=== PATIENT | female | born 2000 | race Two or more races ===

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

== ENCOUNTER 2018-11-17 11:59 | Emergency (ER) | payer OTHER ==
[2018-11-17 12:12] VITALS: BP 120/77
--- NOTE | 2018-11-17 12:37 | ED Physician Documentation ---
History of Present Illness - Stated complaint Stated Complaint: RT ANKLE BUG BITE - Chief complaint Chief Complaint: Wound - History obtained from History obtained from: Patient - History of Present Illness Timing: Yesterday - Additonal information Additional information: This is a 18-year-old woman who has a history of having pretty significant reaction to mosquito bites in the past and she got bit last evening around 9 PM on her left thigh and her right foot. The right ankle area continues to swell as very uncomfortable to stand or put weight down on her foot. She put witch nicolas and a bug cream on it but has not taken anything for the swelling or itching. It is locally itchy but she does not have any spreading rash, no shortness of breath, no fever. The thigh bite has already started to regress which makes her more concerned about the progression of this right foot swelling. 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 : None HEENT: None Psych: None Musculoskeletal: None Derm: Other - Past Surgical History Past Surgical History: No - Present Medications Home Medications: Ambulatory Orders Medication Instructions Recorded Confirmed Control Pill 05/02/16 - Allergies Allergies/Adverse Reactions: Allergies Allergy/AdvReac Type Severity Reaction Status Date / Time No Known Drug Allergies Allergy Verified 11/17/18 12:12 - Social History Does the pt smoke?: No Smoking Status: Never smoker Does the pt drink ETOH?: No Does the pt have substance abuse?: No - Immunizations Immunizations are current?: Yes PD ED PE NORMAL - Vitals Vital signs reviewed: Yes - General General: Alert and oriented X 3, No acute distress, Well developed/nourished - Cardiac Cardiac: RRR - Respiratory Respiratory: No respiratory distress - Derm Derm: Other (Small erythematous raised area to the left thigh that is less than a centimeter. Right lateral ankle anterior to the lateral malleolus is erythematous feels a little warm and edematous consistent with localized reaction. There is no red streaking up the leg.) Results - Vitals Vitals: Vital Signs - 24 hr 11/17/18 12:10 Temperature 36.3 C L Heart Rate 72 Respiratory 16 Rate Blood Pressure 120/77 O2 Saturation 100 Oxygen O2 Source Room air PD MEDICAL DECISION MAKING - ED course Complexity details: d/w patient, d/w family ED course: This swelling is consistent with a localized reaction. The patient is encouraged to take ibuprofen and Benadryl to help with swelling. She was offered a note for work today but she is declined that. Follow-up in 48 hours if there is spreading redness, she develops a fever or increasing pain. Keep Benadryl on hand in the future for future mosquito bites. Departure - Departure Disposition: 01 Home, Self Care Clinical Impression: Insect bite Qualifiers: Encounter type: initial encounter Site of insect bite: foot Laterality: right Qualified Code(s): S90.861A - Insect bite (nonvenomous), right foot, initial encounter; W57.XXXA - Bitten or stung by nonvenomous insect and other nonvenomous arthropods, initial encounter Condition: Good Instructions: ED Bite Mosquito Follow-Up: RYAN REYES MD [Primary Care Provider] - Comments: Take ibuprofen [id number] up to 3 to 4 tablets every 8 hours with food. Take Benadryl 1 to 2 tablets every 4-6 hours for itching and swelling. May ice the area and elevate it to help reduce the swelling. Follow-up if there is continued spreading redness, increasing pain or fever after 48 hours.
== END 2018-11-17 13:04 | disposition home or self-care (01) ==
LOC: ED 11:59
DX: S90.861A Insect bite (nonvenomous), right foot, initial encounter (principal); W57.XXXA Bitten or stung by nonvenomous insect and other nonvenomous arthropods, initial encounter
CPT/HCPCS: 99282

== ENCOUNTER 2019-04-20 12:57 | Emergency (ER) | payer OTHER ==
[2019-04-20 13:07] VITALS: BP 150/86
--- NOTE | 2019-04-20 13:57 | ED Physician Documentation ---
PD HPI FEMALE - Stated complaint Stated Complaint: FEMALE - Chief complaint Chief Complaint: General - History obtained from History obtained from: Patient - History of Present Illness Timing - onset: How many weeks ago (2) Timing - duration: Weeks (had unprotected intercourse 2 weeks ago without any discharge or dysuria since. 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 : None HEENT: None Psych: None Musculoskeletal: None Derm: Other - Past Surgical History Past Surgical History: No - Present Medications Home Medications: Ambulatory Orders Medication Instructions Recorded Confirmed Control Pill 05/02/16 - Allergies Allergies/Adverse Reactions: Allergies Allergy/AdvReac Type Severity Reaction Status Date / Time No Known Drug Allergies Allergy Verified 04/20/19 13:03 - Social History Does the pt smoke?: No Smoking Status: Never smoker Does the pt drink ETOH?: No Does the pt have substance abuse?: No - Immunizations Immunizations are current?: Yes PD ED PE NORMAL - Vitals Vital signs reviewed: Yes - General General: Alert and oriented X 3, No acute distress, Well developed/nourished - Neck Neck: Supple, no meningeal sign, No adenopathy - Abdomen Abdomen: Soft, Non tender - Female Female : Deferred - Back Back: No CVA TTP - Derm Derm: Normal color, Warm and dry - Neuro Neuro: Alert and oriented X 3, No motor deficit, Normal speech Results - Vitals Vitals: Vital Signs - 24 hr 04/20/19 13:04 Temperature 37.1 C Heart Rate 118 H Respiratory 14 Rate Blood Pressure 150/86 H O2 Saturation 99 Oxygen O2 Source Room air - Labs Labs: Laboratory Tests 04/20/19 04/20/19 04/20/19 14:07 14:25 14:25 Urine Color YELLOW Urine Clarity HAZY Urine pH 8.0 H Ur Specific Guild 1.015 Urine Protein NEGATIVE Urine Glucose (UA) NEGATIVE Urine Ketones NEGATIVE Urine Occult Blood NEGATIVE Urine Nitrite NEGATIVE Urine Bilirubin NEGATIVE Urine Urobilinogen 0.2 (NORMAL) Ur Leukocyte Esterase TRACE H Urine RBC 0-5 Urine WBC 4-5 Ur Squamous Epith Cells MANY Squamous H Urine Bacteria Few Ur Microscopic Review INDICATED Urine Culture Comments NOT INDICATED Urine HCG, Qual NEGATIVE C. glabrata (PCR) NEGATIVE C. krusei (PCR) NEGATIVE Martha species DNA NEGATIVE Chlam trachomat DNA PCR NEGATIVE N.gonorrhoeae DNA (PCR) NEGATIVE T. vaginalis (PCR) NEGATIVE NEGATIVE Bact Vaginosis (PCR) NEGATIVE PD MEDICAL DECISION MAKING - ED course Complexity details: reviewed results, considered differential, d/w patient Departure - Departure Disposition: 01 Home, Self Care Clinical Impression: Concern about STD in female without diagnosis Condition: Stable Record reviewed to determine appropriate education?: Yes Follow-Up: RYAN REYES MD [Primary Care Provider] - Comments: The vaginal tests should result in a day or 2. We will call if there is any positive results that need treating. Otherwise follow-up if any vaginal symptoms develop Discharge Date/Time: 04/20/19 14:39
[2019-04-20 14:13] LABS: BILIRUBIN,URINE NEGATIVE (NEGATIVE); GLUCOSE, URINE (UA) NEGATIVE (NEGATIVE); KETONES,URINE (UA) NEGATIVE (NEGATIVE); LEUKOCYTE ESTERASE, URINE TRACE (NEGATIVE); NITRITE,URINE NEGATIVE (NEGATIVE); OCCULT BLOOD,URINE NEGATIVE (NEGATIVE); PROTEIN,URINE NEGATIVE (NEGATIVE); UROBILINOGEN,URINE 0.2 (NORMAL) E.U./dL (NORMAL)
[2019-04-20 14:16] LABS: CLARITY,URINE HAZY (CLEAR); HCG UR QUAL NEGATIVE
[2019-04-20 14:29] LABS: BACTERIA,URINE Few /HPF (None Seen); RBC,URINE 0-5 /HPF (0-5); SQUAMOUS EPITHELIAL CELL,UR MANY Squamous (<= Few)
[2019-04-20 17:09] LABS: CANDIDA GROUP DNA NEGATIVE (NEGATIVE); CANDIDA KRUSEI DNA NEGATIVE (NEGATIVE); TRICHOMONAS VAGINALIS DNA NEGATIVE (NEGATIVE)
[2019-04-20 19:37] LABS: TRICHOMONAS VAGINALIS DNA NEGATIVE (NEGATIVE)
== END 2019-04-20 14:39 | disposition home or self-care (01) ==
LOC: ED 12:57
DX: Z71.1 Person with feared health complaint in whom no diagnosis is made (principal)
CPT/HCPCS: 81001; 81003; 81025; 87086; 87491; 87591; 87661; 87801; 99283

== ENCOUNTER 2019-07-26 20:12 | Emergency (ER) | payer OTHER ==
[2019-07-26 20:27] VITALS: BP 131/78
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
== END 2019-07-26 21:25 | disposition home or self-care (01) ==
LOC: ED 20:12
DX: G44.309 Post-traumatic headache, unspecified, not intractable (principal); F07.81 Postconcussional syndrome; W50.0XXS Accidental hit or strike by another person, sequela
CPT/HCPCS: 70450; 99283; 99284

== ENCOUNTER 2019-07-30 20:42 | Emergency (ER) | payer OTHER ==
[2019-07-30] MEDS ORDERED: SODIUM CHLORIDE 0.9% 1,000 ML IV ONE (21:11)
[2019-07-30] MEDS ORDERED: AMPICILLIN/SULBACTAM 3 GM in SODIUM CHLORIDE 0.9% MINIBAG 100 ML IV STA (21:11)
[2019-07-30] MEDS ORDERED: BENZOCAINE SPRAY MM PRN (21:11)
[2019-07-30] MEDS ORDERED: DEXAMETHASONE 10 MG/ML VIAL IVP STA (21:11)
[2019-07-30] MEDS ORDERED: KETOROLAC 30 MG/ML VIAL IVP STA (21:11)
[2019-07-30 21:16] LABS: RAPID STREP SCREEN Negative (Negative)
--- NOTE | 2019-07-30 21:28 | ED Physician Documentation ---
History of Present Illness - Stated complaint Stated Complaint: SORE THROAT - Chief complaint Chief Complaint: Heent - History obtained from History obtained from: Patient (2 to 3 days of sore throat especially on the right, difficulty swallowing. 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 : None HEENT: None Psych: None Musculoskeletal: None Derm: Other - Past Surgical History Past Surgical History: No - Present Medications Home Medications: Ambulatory Orders Medication Instructions Recorded Confirmed Control Pill 05/02/16 Amoxicillin/Potassium Clav 10 ml PO BID 10 Days susp.recon 07/30/19 [Amox-Clav 400-57 mg/5 ml Susp] Hydrocodone/Acetaminophen [Lortab 10 ml PO Q4HR PRN #120 ml 07/30/19 10 mg-300 mg/15 ml Elxr] PrednisoLONE [Prelone] 15 ml PO DAILY 5 Days #75 ml 07/30/19 - Allergies Allergies/Adverse Reactions: Allergies Allergy/AdvReac Type Severity Reaction Status Date / Time No Known Drug Allergies Allergy Verified 07/30/19 20:53 - Social History Does the pt smoke?: No Smoking Status: Never smoker Does the pt drink ETOH?: No Does the pt have substance abuse?: No - Immunizations Immunizations are current?: Yes - POLST Patient has POLST: No PD ED PE NORMAL - Vitals Vital signs reviewed: Yes - General General: Alert and oriented X 3, No acute distress - HEENT HEENT: Other (She has trismus and obvious right-sided peritonsillar abscess. Phonation is normal. She is not drooling.) - Neck Neck: Supple, no meningeal sign, No bony TTP - Neuro Neuro: Alert and oriented X 3, Normal speech - Psych Psych: Normal mood, Normal affect Results - Vitals Vitals: Vital Signs - 24 hr 07/30/19 07/30/19 20:53 22:44 Temperature 38.1 C H Heart Rate 115 H 102 H Respiratory 16 14 Rate Blood Pressure 124/69 115/71 O2 Saturation 97 98 Oxygen O2 Source Room air - Labs Labs: Laboratory Tests 07/30/19 07/30/19 07/30/19 21:05 21:30 21:30 WBC 17.7 H RBC 4.66 Hgb 13.0 Hct 39.5 MCV 84.8 MCH 27.9 MCHC 32.9 RDW 12.7 Plt Count 381 MPV 8.4 Neut # (Auto) 15.0 H Lymph # (Auto) 1.6 [place] # (Auto) 0.9 Eos # (Auto) 0.1 Baso # (Auto) 0.1 Absolute Nucleated RBC 0.00 Nucleated RBC % 0.0 Sodium 135 Potassium 3.5 Chloride 99 L Carbon Dioxide 24 Anion Gap 12.0 BUN 12 Creatinine 0.8 Estimated GFR (MDRD) 91 Glucose 95 Calcium 8.8 Total Bilirubin 0.9 AST 15 ALT 15 Alkaline Phosphatase 83 Total Protein 8.2 Albumin 4.3 Globulin 3.8 Albumin/Globulin Ratio 1.1 Lipase 23 Group A Strep Rapid Negative Procedures - Abscess I&D (location) R Peritonsillar Preparation: Lidocaine 1% Incision: Needle aspiration. No: Purulent drainage Other: Pt tolerated well PD MEDICAL DECISION MAKING - ED course ED course: 19-year-old woman with right-sided peritonsillar abscess. She was administered IV fluids, Toradol, Decadron, Unasyn here. Some improvement in her trismus. An attempt at needle aspiration was made, but it was a dry tap. Advised she needs close follow-up with ENT. Departure - Departure Disposition: 01 Home, Self Care Clinical Impression: Peritonsillar abscess Condition: Good Record reviewed to determine appropriate education?: Yes Instructions: ED Peritonsillar Abscess Prescriptions: Hydrocodone/Acetaminophen [Lortab 10 mg-300 mg/15 ml Elxr] 10 ml PO Q4HR PRN #120 ml PRN Reason: Pain Amoxicillin/Potassium Clav [Amox-Clav 400-57 mg/5 ml Susp] 10 ml PO BID 10 Days susp.recon PrednisoLONE [Prelone] 15 ml PO DAILY 5 Days #75 ml Comments: You should follow-up tomorrow or the next day with a pearl technician, the closest is in [place], the phone number is [phone]. Return for new or worsening symptoms or in 2 days if unable to obtain follow-up with pearl technician.
[2019-07-30] MEDS ORDERED: PHENOL THROAT SPRAY 177 ML MM STA (21:37)
[2019-07-30 21:38] LABS: BASOPHILS # (AUTO) 0.1 10^3/uL (0.0-0.1); BASOPHILS % (AUTO) 0.4 %; EOSINOPHILS # (AUTO) 0.1 10^3/uL (0.0-0.7); EOSINOPHILS % (AUTO) 0.5 %; LYMPHOCYTES # (AUTO) 1.6 10^3/uL (1.5-3.5); LYMPHOCYTES % (AUTO) 9.3 %; MEAN CORPUSCULAR HEMOGLOBIN 27.9 pg (27.0-31.0); MEAN CORPUSCULAR HGB CONC 32.9 g/dL (32.0-36.0); MEAN CORPUSCULAR VOLUME 84.8 fL (81.0-99.0); MEAN PLATELET VOLUME 8.4 fL (7.9-10.8); MONOCYTES # (AUTO) 0.9 10^3/uL (0.0-1.0); MONOCYTES % (AUTO) 4.8 %; NEUTROPHILS % (AUTO) 84.4 %; PLT - PLATELET COUNT 381 10^3/uL (130-450); RED BLOOD COUNT 4.66 10^6/uL (4.20-5.40); RED CELL DISTRIBUTION WIDTH 12.7 % (12.0-15.0); WHITE BLOOD COUNT 17.7 x10^3/uL (4.8-10.8)
[2019-07-30 21:54] LABS: ALBUMIN 4.3 g/dL (3.2-5.5); ALBUMIN/GLOBULIN RATIO 1.1 (1.0-2.2); BILIRUBIN,TOTAL 0.9 mg/dL (0.2-1.0); CALCIUM 8.8 mg/dL (8.5-10.3); CREATININE 0.8 mg/dL (0.4-1.0); TOTAL PROTEIN 8.2 g/dL (6.7-8.2)
[2019-07-30] MEDS ORDERED: MIDAZOLAM 2 MG/2 ML VIAL IVP STA (22:18)
[2019-07-30 22:45] VITALS: BP 115/71
[2019-07-30] MEDS ORDERED: HYDROcod/ACET 5/325 Prepack 4 PO STA (22:53)
--- NOTE | 2019-07-31 11:01 | ED Physician Documentation ---
ED Addendum - Addendum Addendum: 07/31/19 11:01 Received a phone call from the pharmacy requesting a concentration change in the hydrocodone. Prescription was rewritten and reassured.
== END 2019-07-30 23:04 | disposition home or self-care (01) ==
LOC: ED 20:42
DX: J36 Peritonsillar abscess (principal)
CPT/HCPCS: 36415; 42700; 80053; 83690; 85025; 87070; 87430; 99283; A9270

== ENCOUNTER 2023-12-08 08:00 | Outpatient (CLI) | payer OTHER ==
[2023-12-09 12:25] LABS: BILIRUBIN,URINE NEGATIVE (NEGATIVE); GLUCOSE, URINE (UA) NEGATIVE (NEGATIVE); KETONES,URINE (UA) NEGATIVE (NEGATIVE); LEUKOCYTE ESTERASE, URINE NEGATIVE (NEGATIVE); NITRITE,URINE NEGATIVE (NEGATIVE); OCCULT BLOOD,URINE NEGATIVE (NEGATIVE); PROTEIN,URINE NEGATIVE (NEGATIVE); UROBILINOGEN,URINE 0.2 (NORMAL) E.U./dL (NORMAL)
[2023-12-09 12:39] LABS: BACTERIA,URINE Rare /HPF (None Seen); CLARITY,URINE CLEAR (CLEAR); RBC,URINE None Seen /HPF (0-5); SQUAMOUS EPITHELIAL CELL,UR FEW Squamous (<= Few); WBC,URINE 0-3 /HPF (0-5)
== END 2023-12-08 08:01 | disposition home or self-care (01) ==
LOC: LAB.WC 08:00
PROVIDERS: ATTEND Obstetrics & Gynecology
DX: Z34.00 Encounter for supervision of normal first pregnancy, unspecified trimester (principal)
CPT/HCPCS: 81001; 87086

== ENCOUNTER 2023-12-18 15:58 | Outpatient (CLI) | payer OTHER ==
--- NOTE | 2023-12-18 19:32 | Ultrasound Report ---
PROCEDURE: OB 1st Trimester INDICATIONS: POSITIVE TEST OUTSIDE/PRIOR DATING DATA: Last menstrual period (LMP): 09/28/2023. LMP-based estimated date of delivery ([facility]): 07/04/2024. First dating scan (date and location): 12/18/2023. Estimated date of delivery ([facility]) from first dating scan: 07/19/2024. TECHNIQUE: Real-time scanning was performed of the fetus and maternal pelvic organs, with image documentation. COMPARISON: None. FINDINGS: Intrauterine gestational sac present. Embryo: [place]-rump length measures 2.7 cm corresponding to 9 weeks 3 days Heart rate: 180 bpm. Other: Subchorionic hemorrhage is present measuring 2.9 x 0.8 x 1.8 cm. Measurement variability in dating: +/- 4 weeks by LMP, +/- 7 days by mean sac diameter (use before 6 weeks gestation if crown-rump length not able to be measured), +/- 5 days by crown-rump length (6-12 weeks gestation). Maternal organs: Ovaries appear within normal limits. IMPRESSION: Single live intrauterine with gestational age of 9 weeks 3 days. Recommend follow-up imaging at 20-22 weeks for dates and anatomy. Small subchorionic hemorrhage. Reviewed by: Eunice Sifuentes MD on 12/18/2023 7:30 PM PDT Approved by: Eunice Sifuentes MD on 12/18/2023 7:30 PM PDT Station ID: [id number]
== END 2023-12-18 15:59 | disposition home or self-care (01) ==
LOC: DI 15:58
PROVIDERS: ATTEND Obstetrics & Gynecology
DX: O46.8X1 Other antepartum hemorrhage, first trimester (principal); Z3A.09 9 weeks gestation of pregnancy

== ENCOUNTER 2024-01-05 08:00 | Outpatient (CLI) | payer OTHER ==
[2024-01-05 22:44] LABS: CHLAMYDIA TRACHOMATIS DNA NEGATIVE (NEGATIVE); NEISSERIA GONORRHOEAE DNA NEGATIVE (NEGATIVE); TRICHOMONAS VAGINALIS DNA NEGATIVE (NEGATIVE)
== END 2024-01-05 23:59 | disposition home or self-care (01) ==
LOC: LAB.WC 08:00
PROVIDERS: ATTEND Obstetrics & Gynecology
DX: Z11.3 Encounter for screening for infections with a predominantly sexual mode of transmission (principal)
CPT/HCPCS: 87491; 87591; 87661

== ENCOUNTER 2024-01-05 14:36 | Outpatient (CLI) | payer OTHER ==
[2024-01-05 15:01] LABS: BASOPHILS % (AUTO) 0.5 %; EOSINOPHILS % (AUTO) 0.4 %; HCT - HEMATOCRIT 35.8 % (37.0-47.0); HGB - HEMOGLOBIN 12.5 g/dL (12.0-16.0); LYMPHOCYTES # (AUTO) 1.4 10^3/uL (1.5-3.5); LYMPHOCYTES % (AUTO) 18.3 %; MEAN CORPUSCULAR HEMOGLOBIN 28.4 pg (27.0-31.0); MEAN CORPUSCULAR HGB CONC 34.9 g/dL (32.0-36.0); MEAN CORPUSCULAR VOLUME 81.4 fL (81.0-99.0); MEAN PLATELET VOLUME 9.1 fL (7.9-10.8); MONOCYTES # (AUTO) 0.2 10^3/uL (0.0-1.0); MONOCYTES % (AUTO) 3.1 %; NEUTROPHILS % (AUTO) 77.4 %; PLT - PLATELET COUNT 257 10^3/uL (130-450); RED CELL DISTRIBUTION WIDTH 12.4 % (12.0-15.0); WHITE BLOOD COUNT 7.7 x10^3/uL (4.8-10.8)
[2024-01-06 02:08] LABS: HBsAG SCREEN Negative (Negative); HIV SCREEN 4TH GENERATION Non Reactive (Non Reactive)
[2024-01-06 03:11] LABS: RPR Non Reactive (Non Reactive)
[2024-01-06 08:10] LABS: VARICELLA-ZOSTER AB IGG Reactive (Non Reactive)
[2024-01-07 00:08] LABS: HCV AB Non Reactive (Non Reactive)
== END 2024-01-05 14:37 | disposition home or self-care (01) ==
LOC: LAB 14:36
PROVIDERS: ATTEND Obstetrics & Gynecology
DX: Z34.00 Encounter for supervision of normal first pregnancy, unspecified trimester (principal); Z36.89 Encounter for other specified antenatal screening
CPT/HCPCS: 36415; 85025; 86592; 86762; 86787; 86803; 86850; 86900; 86901; 87340; 87389